=== PATIENT | female | born 1990 | race Caucasian/White ===

== ENCOUNTER 2016-07-16 00:32 | Inpatient (IN) ==
[2016-07-16] MEDS ORDERED: Lidocaine/EPI 1:100k 1% 30 ML VIAL ONE (00:36)
[2016-07-16] MEDS ORDERED: *HR* Oxytocin 10 UNIT/ML VIAL IM ONE ×2 (00:41→00:42)
[2016-07-16] MEDS ORDERED: Ibuprofen 600 MG TABLET PO ONE (01:49)
[2016-07-16] MEDS ORDERED: miSOPROStol 100 MCG TABLET PO SCH (05:30)
[2016-07-16] MEDS ORDERED: *HR* HYDROcodone/Acet 5/325 mg TABLET PO PRN (05:59)
[2016-07-16] MEDS ORDERED: Acetaminophen 325 MG TABLET PO PRN (05:59)
[2016-07-16] MEDS ORDERED: Measles/Mumps/Rubella Vacc 0.5 ML VIAL SQ PRN (05:59)
[2016-07-16 07:47] LABS: Basophils % 0.2 %; Eosinophils # 0.1 K/mcL (0.0-0.6); Eosinophils % 0.4 %; Hematocrit 37.9 % (35.3-44.9); Immature Granulocytes % 0.6 % (0-4); Immature Platelets 9.8 % (1.1-6.1); Lymphocytes # 2.1 K/mcL (0.6-4.6); Lymphocytes % 11.1 %; Mean Corpuscular HGB Conc 34.3 g/dL (31.6-35.5); Mean Corpuscular Hemoglobin 31.8 pg (28.0-33.3); Mean Corpuscular Volume 92.7 fL (83.0-100.0); Mean Platelet Volume 11.9 fL (9.4-12.4); Monocytes # 0.5 K/mcL (0.0-1.3); Monocytes % 2.6 %; Neutrophils # 15.7 K/mcL (1.6-8.9); Platelet Count 188 K/mcL (140-400); Red Blood Count 4.09 M/mcL (3.82-4.97); Red Cell Distribution Width 12.9 % (11.5-14.5); Segmented Neutrophils % 85.1 %
[2016-07-16] MEDS ORDERED: miSOPROStol 100 MCG TABLET PO ONE (09:00)
[2016-07-16] MEDS ORDERED: Benzocaine/Menthol 56 GM AEROSOL SPRAY TP ONE (17:40)
[2016-07-16] MEDS: Ibuprofen 600 MG TABLET PO PRN (20:09)
[2016-07-17] MEDS: Ibuprofen 600 MG TABLET PO PRN (05:59)
[2016-07-17 08:19] VITALS: BP 104/69
--- NOTE | 2016-07-17 11:05 | Discharge Summary ---
Date of Encounter: 07/17/16 Time of Encounter: 11:03 - Discharge Diagnosis (1) Vaginal delivery Priority: Primary Status: Acute Comments: Pt meeting all milestones. - Discharge Medications Prescriptions: Ibuprofen [Motrin] 600 mg PO Q6HR PRN #60 tablet PRN Reason: Cramping Docusate [Colace] 200 mg PO BID #60 capsule Home Medications: Vit No.124/Iron/FA [ Vitamin Tablet] 1 each PO DAILY #90 tablet 09/04/15 [Rx] Docusate [Colace] 200 mg PO BID #60 capsule 07/17/16 [Rx] Ibuprofen [Motrin] 600 mg PO Q6HR PRN #60 tablet 07/17/16 [Rx] Allergies/Adverse Reactions: Allergies Penicillins Allergy (Verified 09/04/15 11:34) Hives Data Procedures and tests throughout hospitalization: Laboratory Tests 07/16/16 01:28 WBC 18.5 H RBC 4.09 Hgb 13.0 Hct 37.9 MCV 92.7 MCH 31.8 MCHC 34.3 RDW 12.9 Plt Count 188 MPV 11.9 Immature Gran % 0.6 Seg Neutrophils % 85.1 Lymphocytes % 11.1 Monocytes % 2.6 Eosinophils % 0.4 Basophils % 0.2 Neutrophils # 15.7 H Lymphocytes # 2.1 Monocytes # 0.5 Eosinophils # 0.1 Basophils # 0.0 Immature Plt Fraction 9.8 H Date of admission: 07/16/16 00:32 Primary care physician: PCP NO Consults: 07/16/16 06:49 Consult to Level Designer [CONS] Routine Comment: Vaginal delivery, consult needed Discharging clinician: Shireen Ward Anticipated date of discharge: 07/17/16 - Patient Status Disposition: Home, Self-Care Condition: Good Functional capacity at discharge: independent ambulation Overall status at discharge: patient is progressing back to baseline - Discharge Instructions Follow Up With: NO,PCP [Primary Care Provider] - Shaan Jimenez DO [Partnered Physician] - Additional Instructions: Perineal Care: Always wipe front to back Change your pad frequently Use your noy bottle with warm water and spray front to back Do not douche, use tampons, have sexual intercourse or put anything in your vagina for 4-6 weeks after delivery Bleeding: Vaginal bleeding can last up to 6 weeks Your menstrual period may return as early as 6 weeks after you are discharged from the hospital Andra/Stitches Care: Vaginal Delivery Vaginal stitches will dissolve within 4-6 weeks Follow perineal care instructions Care Stitches will dissolve on their own If you have andra, they will need to be removed in the doctors office within 5-7 days. You may shower with stitches or andra Drip plan or soapy water over the incision to clean. Pat dry gently with a clean towel. Make sure you completely dry under the skin folds DO NOT USE powders, lotions, rubbing alcohol or hydrogen peroxide on or around your incision. This will slow your wound healing It is normal to have soreness, burning, tingling, itchiness and/or numbness as your incision heals Activity: Rest frequently Do not lift anything heavier than a gallon of milk, up to 10-15 pounds No driving for 1-2 weeks for Vaginal delivery No driving for 2-4 weeks for delivery Take stairs slowly, one at a time Gradually increase your daily activity until you are back to your normal routine Do not exercise until you have had your follow-up appointment Bathing: Take a shower daily Do not take a tub bath for the first 4 weeks Diet: Drink plenty of water and fruit juices Eat a well-balanced diet with foods high in fiber such as fruits and vegetables Depression: Your hormones have a major impact on your feelings and emotions. Hormone imbalance may cause changes in your mood, creating unfamiliar thoughts and actions. Support is available to help you understand and cope with these feelings and mood changes. If you answer yes to any of the following questions, please call your health care provider: Are you having trouble sleeping? Are you feeling isolated? Have you lost your appetite? Are you having thoughts of hurting yourself or others? WARNING SIGNS: Heavy bleeding from the vagina (blood is bright red and soaks a sanitary pad in an hour or less.) Passing a blood clot larger than your fist Discharge from the vagina that has a bad odor Temperature over 100.4 F, or if you feel cold and have chills An episiotomy site that is warm, swollen or oozing. Use a mirror if needed Urination (pee) that is painful, very red and swollen or leaking fluid An incision that is painful, very red and swollen and leaking fluid An incision that has come open Breasts that are painful or full with flu like symptoms Redness, warmth or swelling in the calf of your leg Trouble breathing, dizziness, visual disturbance or faintness *Notify your health care provider immediately or go to the nearest Emergency Room if you experience any of the above signs.* To contact the nurses station 24 hours a day, For non-urgent, routine questions, please call the office at - Diet and Activity Activity: increase activity as tolerated Diet: advance to your usual diet Hospital Course Reason for admission: active labor Delivery: Episiotomy: midline Laceration: none Other procedures: none complications: none Discharge diagnosis: IUP at term delivered baby: male Hospital course: Pt presented in active labor and delivered precipitously. Her course was uncomplicated. She was discharged home in stable condition on PPD#1. Time Attestation: Total time spent providing and/or coordinating discharge services: Exam - Constitutional Vitals: Temp Pulse Resp BP Pulse Ox 97.8 F 70 14 104/69 100 07/17/16 07:40 07/17/16 07:40 07/17/16 08:22 07/17/16 07:40 07/16/16 20:16 General appearance IM: A&O X 3, pleasant, no acute distress - Respiratory Respiratory exam: Present: CTAB - Cardiovascular Cardiovascular exam IM: Present: RRR, +S1, +S2 - GI/Abdominal GI/Abdominal exam IM: soft - Rectal Rectal exam: deferred - External exam: normal external exam Uterine Tone: Firm Uterus Position: 2 Fingers Below Umbilicus - Extremities Exam Extremities exam IM: Present: normal inspection - Neurological Exam Neurological exam: normal gait, oriented X3 - Psychiatric Additional comments: reports good mood
== END 2016-07-17 12:22 | disposition home or self-care (01) | DRG 775 ==
LOC: 1NENULAB → 1NENUOBS 05:00
PROVIDERS: ADMIT Obstetrics & Gynecology; ATTEND Obstetrics & Gynecology

== ENCOUNTER 2019-05-21 22:29 | Inpatient (IN) ==
[2019-05-21] MEDS ORDERED: *HR* FentaNYL (PF) 100 MCG/2 ML VIAL IVP ONE (23:45)
[2019-05-21] MEDS ORDERED: *HR* Midazolam HCl 2 MG/2 ML VIAL IVP ONE (23:45)
[2019-05-22] MEDS ORDERED: 0.9 % Sodium Chloride 1,000 ML ONE ×2 (00:02→01:31)
[2019-05-22] MEDS ORDERED: 0.9 % Sodium Chloride 1,000 ML IV ONE ×2 (00:06→01:33)
[2019-05-22] MEDS ORDERED: *HR* FentaNYL (PF) 100 MCG/2 ML VIAL IVP ONE (01:34)
[2019-05-22] MEDS ORDERED: *HR* FentaNYL (PF) 100 MCG/2 ML VIAL ONE (01:36)
[2019-05-22] MEDS ORDERED: *HR* OxyCODONE Immed Rel 5 MG TABLET PO STA (02:29)
[2019-05-22 03:54] LABS: Basophils % 0.1 %; Hematocrit 31.9 % (35.3-44.9); Hemoglobin 10.6 g/dL (11.5-15.4); Immature Granulocytes % 0.3 % (0-4); Lymphocytes # 0.4 K/mcL (0.6-4.6); Lymphocytes % 2.9 %; Mean Corpuscular HGB Conc 33.2 g/dL (31.6-35.5); Mean Corpuscular Hemoglobin 31.8 pg (28.0-33.3); Mean Corpuscular Volume 95.8 fL (83.0-100.0); Mean Platelet Volume 10.3 fL (9.4-12.4); Monocytes # 0.3 K/mcL (0.0-1.3); Monocytes % 1.9 %; Neutrophils # 13.9 K/mcL (1.6-8.9); Platelet Count 238 K/mcL (140-400); Red Blood Count 3.33 M/mcL (3.82-4.97); Red Cell Distribution Width 12.7 % (11.5-14.5); Segmented Neutrophils % 94.8 %; White Blood Count 14.6 K/mcL (4.3-11.1)
[2019-05-22 03:58] LABS: INR 1.1; Prothrombin Time 12.3 Seconds (9.4-12.1)
[2019-05-22 04:00] LABS: Activated Partial Thrombo Time 28.2 Seconds (26.0-36.0)
[2019-05-22] MEDS ORDERED: *HR* OxyCODONE Immed Rel 5 MG TABLET PO ONE (04:00)
[2019-05-22 04:14] LABS: Alanine Aminotransferase 9 Units/L (7-52); Albumin 3.4 g/dL (3.5-5.7); Albumin/Globulin Ratio 1.6 (1.1-2.2); Alkaline Phosphatase 65 Units/L (34-104); Aspartate Amino Transferase 11 Units/L (13-39); BUN/Creatinine Ratio 13 (6-26); Bilirubin,Direct 0.2 mg/dL (0.0-0.2); Bilirubin,Indirect 0.8 mg/dL (0.0-1.0); Blood Urea Nitrogen 8 mg/dL (6-20); Calcium 7.9 mg/dL (8.6-10.3); Carbon Dioxide 22 mEq/L (23-29); Chloride 106 mEq/L (98-107); Globulin 2.1 g/dL (2.4-3.5); Glucose 170 mg/dL (70-105); Osmolality,Calculated 284 (280-300); Potassium 4.7 mEq/L (3.5-5.1); Sodium 136 mEq/L (136-145); Total Protein 5.5 g/dL (6.4-8.9); eGFR For African Americans > 60 (> 60); eGFR For Non-African Americans > 60 (> 60)
[2019-05-22] MEDS ORDERED: *HR* LORazepam 2 MG/ML VIAL IVP ONE (04:50)
[2019-05-22] MEDS ORDERED: Isovue-370 500 ML BOTTLE IVP ONE (04:56)
[2019-05-22] MEDS ORDERED: *HR* HYDROmorphone (PF) 1 MG/ML SYRINGE IVP STA (06:48)
[2019-05-22] MEDS ORDERED: Naloxone 0.4 MG/ML INJ IVP PRN (08:36)
[2019-05-22] MEDS: Acetaminophen IV 1,000 MG/100 ML INFUS..BTL IVPB SCH ×3 (09:16→20:08)
[2019-05-22] MEDS: *HR* HYDROmorphone (PF) 1 MG/ML SYRINGE IVP PRN ×3 (09:25→21:29)
[2019-05-22] MEDS: *HR* OxyCODONE Immed Rel 5 MG TABLET PO PRN ×2 (12:27→18:50)
[2019-05-23] MEDS: Acetaminophen IV 1,000 MG/100 ML INFUS..BTL IVPB SCH ×2 (01:18→06:23)
[2019-05-23] MEDS: *HR* OxyCODONE Immed Rel 5 MG TABLET PO PRN ×3 (01:40→21:52)
[2019-05-23] MEDS: *HR* HYDROmorphone (PF) 1 MG/ML SYRINGE IVP PRN (02:42)
[2019-05-23] MEDS ORDERED: *HR* OxyCODONE Immed Rel 15 MG TABLET PO PRN (09:34)
[2019-05-23] MEDS ORDERED: *HR* OxyCODONE Immed Rel 5 MG TABLET PO PRN ×2 (09:35→10:47)
[2019-05-23] MEDS: Ketorolac 15 MG/ML VIAL IVP SCH ×3 (11:26→23:37)
[2019-05-23] MEDS ORDERED: Ketorolac 15 MG/ML VIAL IVP SCH (12:00)
[2019-05-23] MEDS: *HR* OxyCODONE Immed Rel 15 MG TABLET PO PRN (13:36)
[2019-05-23] MEDS: Gabapentin 300 MG CAPSULE PO SCH ×2 (14:16→19:43)
[2019-05-24] MEDS: Ketorolac 15 MG/ML VIAL IVP SCH (05:25)
[2019-05-24 06:11] LABS: VBG HCO3 31 mEq/L (21-27); VBG PCO2 55 mmHg (41-51); VBG PH 7.37 pH Units (7.32-7.42); VBG PO2 34 mmHg (25-50)
[2019-05-24 06:14] LABS: Hematocrit 26.8 % (35.3-44.9); Mean Corpuscular HGB Conc 33.2 g/dL (31.6-35.5); Mean Corpuscular Hemoglobin 31.9 pg (28.0-33.3); Mean Corpuscular Volume 96.1 fL (83.0-100.0); Mean Platelet Volume 10.4 fL (9.4-12.4); Platelet Count 234 K/mcL (140-400); Red Blood Count 2.79 M/mcL (3.82-4.97); Red Cell Distribution Width 12.4 % (11.5-14.5)
[2019-05-24 06:16] LABS: Hemoglobin 8.9 g/dL (11.5-15.4)
[2019-05-24 06:44] LABS: BUN/Creatinine Ratio 18 (6-26); Blood Urea Nitrogen 12 mg/dL (6-20); Calcium 8.4 mg/dL (8.6-10.3); Carbon Dioxide 29 mEq/L (23-29); Chloride 100 mEq/L (98-107); Glucose 88 mg/dL (70-105); Magnesium 1.9 mg/dL (1.6-2.6); Osmolality,Calculated 283 (280-300); Sodium 137 mEq/L (136-145); eGFR For African Americans > 60 (> 60); eGFR For Non-African Americans > 60 (> 60)
[2019-05-24] MEDS: Gabapentin 300 MG CAPSULE PO SCH ×3 (06:59→20:32)
[2019-05-24] MEDS: *HR* OxyCODONE Immed Rel 15 MG TABLET PO PRN (06:59)
[2019-05-24] MEDS: *HR* OxyCODONE Immed Rel 5 MG TABLET PO PRN ×2 (10:50→23:46)
[2019-05-24] MEDS ORDERED: Nicotine 2 MG GUM BC PRN (11:47)
[2019-05-24] MEDS: Ketorolac 30 MG/ML VIAL IVP SCH ×3 (13:07→23:40)
[2019-05-25 05:26] LABS: Hematocrit 28.1 % (35.3-44.9); Hemoglobin 9.6 g/dL (11.5-15.4); Mean Corpuscular HGB Conc 34.2 g/dL (31.6-35.5); Mean Corpuscular Hemoglobin 31.5 pg (28.0-33.3); Mean Corpuscular Volume 92.1 fL (83.0-100.0); Mean Platelet Volume 10.2 fL (9.4-12.4); Platelet Count 288 K/mcL (140-400); Red Blood Count 3.05 M/mcL (3.82-4.97); Red Cell Distribution Width 12.3 % (11.5-14.5); White Blood Count 8.4 K/mcL (4.3-11.1)
[2019-05-25 05:45] LABS: BUN/Creatinine Ratio 19 (6-26); Blood Urea Nitrogen 13 mg/dL (6-20); Calcium 8.5 mg/dL (8.6-10.3); Carbon Dioxide 29 mEq/L (23-29); Chloride 104 mEq/L (98-107); Glucose 89 mg/dL (70-105); Osmolality,Calculated 286 (280-300); Potassium 4.2 mEq/L (3.5-5.1); Sodium 138 mEq/L (136-145); eGFR For African Americans > 60 (> 60); eGFR For Non-African Americans > 60 (> 60)
[2019-05-25] MEDS: Ketorolac 30 MG/ML VIAL IVP SCH (05:48)
[2019-05-25] MEDS ORDERED: Acetaminophen IV 1,000 MG/100 ML INFUS..BTL IVPB ONE (06:47)
[2019-05-25] MEDS ORDERED: Gabapentin 300 MG CAPSULE PO ONE (06:47)
[2019-05-25] MEDS ORDERED: *HR* OxyCODONE Immed Rel 5 MG TABLET PO PRN (06:48)
[2019-05-25] MEDS ORDERED: Ondansetron 4 MG/2 ML VIAL IVP ONE (06:48)
[2019-05-25] MEDS ORDERED: Albuterol 2.5 MG/3 ML NEBULIZER IH PRN (06:48)
[2019-05-25] MEDS ORDERED: *HR* HYDROmorphone (PF) 1 MG/ML SYRINGE IVP PRN (06:48)
[2019-05-25] MEDS ORDERED: *HR* Promethazine 25 MG/ML VIAL IVP PRN ×2 (06:48→09:06)
[2019-05-25] MEDS ORDERED: Lidocaine -MPF 4% 5 ML AMPUL ONE (07:15)
[2019-05-25] MEDS ORDERED: *HR* FentaNYL (PF) 100 MCG/2 ML VIAL ONE (07:15)
[2019-05-25] MEDS ORDERED: *HR* Midazolam HCl 2 MG/2 ML VIAL ONE (07:15)
[2019-05-25] MEDS ORDERED: Ondansetron 4 MG/2 ML VIAL ONE (07:15)
[2019-05-25] MEDS ORDERED: *HR* Rocuronium Bromide 50 MG/5 ML VIAL ONE (07:15)
[2019-05-25] MEDS ORDERED: *HR* Propofol 200 MG/20 ML VIAL IVP ONE (07:15)
[2019-05-25] MEDS ORDERED: Lidocaine -MPF 2% 2 ML VIAL ONE (07:15)
[2019-05-25] MEDS ORDERED: Dexamethasone 4 MG/ML VIAL ONE (07:15)
[2019-05-25] MEDS ORDERED: *HR* Succinylcholine 200 MG/10 ML VIAL IVP ONE (07:18)
[2019-05-25] MEDS ORDERED: Talc (sterile) 4 GM, 0.9 % Sodium Chloride 50 ML, Syringe CATH TIP 1 EACH IX ONE (07:45)
[2019-05-25] MEDS ORDERED: Clindamycin 600 MG/50 ML 600 MG/50 ML IV.SOLN IVPB STA (07:46)
[2019-05-25] MEDS ORDERED: Clindamycin 600 MG/50 ML 600 MG/50 ML IV.SOLN IVPB ONE (07:48)
[2019-05-25] MEDS ORDERED: Doxycycline 800 MG, Syringe CATH TIP 1 EACH IX ONE (08:00)
[2019-05-25] MEDS ORDERED: CeFAZolin Syr 2,000MG/20 ML 2,000 MG/20 ML SYRINGE IVPB ONE (08:00)
[2019-05-25] MEDS ORDERED: *HR* PHENYLEPHRINE 1,000 MCG/10 ML SYRINGE IVP ONE (08:06)
[2019-05-25] MEDS ORDERED: Nicotine 2 MG GUM BC PRN (09:06)
[2019-05-25] MEDS ORDERED: Naloxone 0.4 MG/ML INJ IVP PRN (09:06)
[2019-05-25] MEDS: *HR* OxyCODONE Immed Rel 5 MG TABLET PO PRN ×4 (10:31→22:16)
[2019-05-25] MEDS ORDERED: *HR* HYDROmorphone 2 MG/ML SYRINGE IVP ONE (10:34)
[2019-05-25] MEDS: Ketorolac 15 MG/ML VIAL IVP SCH ×2 (11:46→18:05)
[2019-05-25] MEDS: Gabapentin 300 MG CAPSULE PO SCH ×3 (14:14→20:08)
[2019-05-26] MEDS: Ketorolac 15 MG/ML VIAL IVP SCH ×4 (00:02→17:01)
[2019-05-26 06:09] LABS: BUN/Creatinine Ratio 14 (6-26); Blood Urea Nitrogen 9 mg/dL (6-20); Carbon Dioxide 28 mEq/L (23-29); Chloride 101 mEq/L (98-107); Glucose 110 mg/dL (70-105); Osmolality,Calculated 283 (280-300); Potassium 3.9 mEq/L (3.5-5.1); Sodium 137 mEq/L (136-145); eGFR For African Americans > 60 (> 60); eGFR For Non-African Americans > 60 (> 60)
[2019-05-26] MEDS: *HR* OxyCODONE Immed Rel 5 MG TABLET PO PRN ×2 (07:44→20:40)
[2019-05-26] MEDS: Gabapentin 300 MG CAPSULE PO SCH ×3 (07:44→20:40)
[2019-05-26] MEDS: Sennosides/Docusate Sodium TABLET PO SCH ×2 (10:09→20:41)
[2019-05-27] MEDS: Ketorolac 15 MG/ML VIAL IVP SCH ×4 (00:03→18:35)
[2019-05-27] MEDS: Sennosides/Docusate Sodium TABLET PO SCH ×2 (09:30→20:58)
[2019-05-27] MEDS: Gabapentin 300 MG CAPSULE PO SCH ×3 (09:30→20:58)
[2019-05-27] MEDS ORDERED: *HR* Promethazine 25 MG/ML VIAL IVP PRN (10:53)
[2019-05-27] MEDS ORDERED: *HR* OxyCODONE Immed Rel 5 MG TABLET PO PRN (10:53)
[2019-05-27] MEDS ORDERED: Naloxone 0.4 MG/ML INJ IVP PRN (10:53)
[2019-05-27] MEDS ORDERED: Nicotine 2 MG GUM BC PRN (10:53)
[2019-05-27] MEDS: NORGESTIMATE ETHINYL ESTRADIOL PO SCH (13:58)
[2019-05-28] MEDS: Ketorolac 15 MG/ML VIAL IVP SCH ×2 (00:06→05:38)
[2019-05-28 06:49] VITALS: BP 115/81
[2019-05-28] MEDS: Gabapentin 300 MG CAPSULE PO SCH (08:26)
[2019-05-28] MEDS: Sennosides/Docusate Sodium TABLET PO SCH (08:26)
[2019-05-28] MEDS: NORGESTIMATE ETHINYL ESTRADIOL PO SCH (08:26)
[2019-05-28] MEDS ORDERED: FLU Vac QV 19-20 (6Month+)/PF 0.5 ML SYRINGE IM ONE (10:34)
== END 2019-05-28 11:10 | disposition home or self-care (01) | DRG 163 ==
LOC: EMEROOARM 22:29 → CDU 22:29 → SUATTDRO 05-22 08:36 → CDU 05-22 08:38 → 2ANU 05-22 18:31 → ICNU 05-25 09:04 → 2NNU 05-27 13:05
PROVIDERS: ADMIT Internal Medicine; ATTEND Internal Medicine